=== PATIENT | male | born 1945 ===

== ENCOUNTER 2018-08-10 11:29 | Inpatient (IN) | payer OTHER ==
[~2018-08-10] VITALS: Ht 160 cm; Wt 87.5 kg
[2018-08-10] MEDS ORDERED: TAMS0.4C PO (12:21)
[2018-08-10] MEDS ORDERED: LOSARTAN-HCTZ1 EAC1 PO (12:21)
[2018-08-10] MEDS ORDERED: FENOFIBRATE54 MG PO (12:21)
[2018-08-10] MEDS ORDERED: MECLAZINE PO (12:22)
[2018-08-10] MEDS ORDERED: RELAFEN PO (12:23)
[2018-08-18] MEDS ORDERED: NABUMETONE500 MG PO (08:23)
[2018-08-18] MEDS ORDERED: MOTION RELIEF25 MG PO (08:26)
[2018-08-20] MEDS ORDERED: NEURONTIN300 MG PO (07:18)
[2018-08-20] MEDS ORDERED: MIRALAX17 GM PO (07:18)
[2018-08-20] MEDS ORDERED: ULTRACET PO (07:18)
== END 2018-08-20 08:55 | disposition home or self-care (01) | DRG 355 ==
LOC: O/R 08-18 08:01 → SURH 08-18 08:01 → SURG 08-18 09:15 → SURH 08-18 16:24
PROVIDERS: Surgery
PROC: 0WUF4JZ Supplement Abdominal Wall with Synthetic Substitute, Percutaneous Endoscopic Approach (ICD-10-PCS; 2018-08-18)
PROC: 0JX80ZZ Transfer Abdomen Subcutaneous Tissue and Fascia, Open Approach (ICD-10-PCS; 2018-08-18)
PROC: 0WUF4JZ Supplement Abdominal Wall with Synthetic Substitute, Percutaneous Endoscopic Approach (ICD-10-PCS; principal; 2018-08-18 09:15)
DX: K43.0 Incisional hernia with obstruction, without gangrene (principal); K42.0 Umbilical hernia with obstruction, without gangrene; I10 Essential (primary) hypertension; E78.1 Pure hyperglyceridemia; K21.9 Gastro-esophageal reflux disease without esophagitis; M19.90 Unspecified osteoarthritis, unspecified site; N40.0 Benign prostatic hyperplasia without lower urinary tract symptoms